=== PATIENT | female | born 1965 | race Two or more races ===

== ENCOUNTER 2017-09-23 08:11 | Inpatient (IN) | payer OTHER ==
[2017-09-22 12:00] VITALS: BMI 50.8
[~2017-09-23 08:11] MED LIST: BUPIVACAINE HCL/PF (5 MG/ML) 30 ML VIAL IJ ONE
[2017-09-23] MEDS ORDERED: fentaNYL CITRATE 250 MCG/5 ML VIAL ONE (09:28)
[2017-09-23] MEDS ORDERED: MIDAZOLAM HCL 2 MG/2 ML SINGLE DOSE VIAL ONE (09:28)
--- NOTE | 2017-09-23 10:06 | HP ---
History & Physical Update - History History: No Change - Physical Physical: No Change - Assessment Assessment: No Change - Plan Plan: No Change (Laparoscopic vertical sleeve gastrectomy, possible open, possible wedge liver biopsy, EGD)
[2017-09-23] MEDS ORDERED: BUPIVACAINE HCL/PF 0.5% (5MG/ML) 10 ML VIAL ONE (10:09)
[2017-09-23] MEDS ORDERED: ceFAZolin SODIUM 1 GM VIAL ONE (11:00)
[2017-09-23] MEDS ORDERED: KETOROLAC TROMETHAMINE 30 MG/1 ML VIAL ONE (11:00)
[2017-09-23] MEDS ORDERED: LABETALOL HCL 5 MG/1 ML (100MG/20 ML VIAL) ONE ×2 (11:00→11:11)
[2017-09-23] MEDS ORDERED: DEXAMETHASONE SOD PHOSPHATE 4 MG/1 ML VIAL ONE (11:00)
[2017-09-23] MEDS ORDERED: ceFAZolin SODIUM 1 GM VIAL IVPB ONE (11:04)
[2017-09-23] MEDS ORDERED: DESFLURANE GAS 240 ML BOTTLE IH ONE (11:08)
[2017-09-23] MEDS ORDERED: LIDOCAINE HCL 2% JELLY (5 ML/TUBE) ONE (11:11)
[2017-09-23] MEDS ORDERED: GLYCOPYRROLATE 0.2 MG/1 ML VIAL ONE ×2 (12:07→12:18)
[2017-09-23] MEDS ORDERED: BUPIVACAINE HCL/PF (5 MG/ML) 30 ML VIAL IJ ONE (12:11)
--- NOTE | 2017-09-23 12:15 | OP ---
Operative Note - Note: Operative Date: 09/23/17 Pre-Operative Diagnosis: Morbid obesity Operation: Laparoscopic vertical sleeve gastrectomy, wedge liver biopsy, EGD Post-Operative Diagnosis: Same as Pre-op Surgeon: Chris Woodward Shingles Roofer Helper: Arcadio Lainez Anesthesia: General Specimens Removed: Greater curvature of stomach. Liver biopsy Estimated Blood Loss (mls): 30 Drains & Tubes with Location: 36 Fr Bougie Operative Report Dictated: Yes
--- NOTE | 2017-09-23 12:30 | SURG ---
Surgery Assistant Men'S Lacrosse Coach Note Assistant Men'S Lacrosse Coach: Arcadio Lainez PA-C Date of Service: 09/23/17 Diagnosis: Morbid Obesity Procedure: Laparoscopic vertical sleeve gastrectomy, wedge liver biopsy, EGD I was present for the entirety of the operative procedure. For further detail, please refer to operative report. Visit type - Case Type Case Type: Scheduled - New patient This patient is new to me today: Yes Date on this admission: 09/23/17
[2017-09-23] MEDS ORDERED: METOCLOPRAMIDE HCL INJECTION 10 MG/2 ML VIAL ONE (12:39)
[2017-09-23] MEDS ORDERED: FAMOTIDINE 20 MG/50 ML IVPB 20 MG/50 ML MG IVPB ONE (12:39)
[2017-09-23] MEDS ORDERED: ACETAMINOPHEN INJECTION 100 ML IVPB ONE (12:40)
[2017-09-23] MEDS: ACETAMINOPHEN 1000 MG/100 ML VIAL (NON FORMULARY) IVPB SCH ×3 (13:00→18:53)
[2017-09-23 14:42] LABS: HEMATOCRIT 39.1 % (32.4-45.2); HEMOGLOBIN 12.7 GM/dL (10.7-15.3); MCH 28.3 pg (25.7-33.7); MCHC 32.5 g/dl (32.0-36.0); MEAN CELL VOLUME 87.2 fl (80-96); MEAN PLT VOLUME 9.9 fl (7.5-11.1); PLATELET COUNT 336 K/MM3 (134-434); RBC 4.49 M/mm3 (3.60-5.2); RDW 14.8 % (11.6-15.6); WHITE BLOOD COUNT 18.4 K/mm3 (4.0-10.0)
--- NOTE | 2017-09-23 14:43 | SPEC ---
DATE OF OPERATION: 09/23/2017 PREOPERATIVE DIAGNOSES: 1. Morbid obesity. 2. Body mass index 50.8. 3. Hypertension. 4. Diabetes mellitus. POSTOPERATIVE DIAGNOSES: 1. Morbid obesity. 2. Body mass index 50.8. 3. Hypertension. 4. Diabetes mellitus. 5. Hepatomegaly. PROCEDURE PERFORMED: 1. Laparoscopic vertical sleeve gastrectomy. 2. Laparoscopic wedge liver biopsy. 3. Esophagogastroduodenoscopy. SURGEON: Chris Woodward M.D. RUBBER PRESS OPERATOR: MARY Pruett SPECIMENS: 1. Greater curvature of the stomach. 2. Wedge liver biopsy. ESTIMATED BLOOD LOSS: 30 mL. DRAINS: None. ANESTHESIA: GET. BOUGIE SIZE: 36 Armenian REASON FOR PROCEDURE: This 52-year-old female presented to the office for weight loss options. After describing the different options, she decided to proceed with a laparoscopic, possible open vertical sleeve gastrectomy, possible wedge liver biopsy and upper endoscopy. The risks and benefits of the procedure were explained. These included bleeding, infection, hernia, VA, DVT, PE, injury to surrounding structures including the liver, colon, bowel, spleen, esophagus, vessel injury, nerve injury, weight regain, gastric leak, staple line leak, sleeve leak, obstruction, vitamin deficiency, hair loss and as some of the possible complications. The patient understood and signed informed consent. DESCRIPTION OF PROCEDURE: The patient was placed supine on the operating room table. The patient underwent general endotracheal intubation. A Pham catheter was inserted. The arms were brought out at 90 degrees and secured. A footboard was placed and the legs were secured laterally with padding. The abdomen was prepped and draped in the usual sterile fashion. A timeout was performed. An incision was made in the left upper quadrant and a Veress needle inserted. Pneumoperitoneum was established. Subsequently, the Veress needle was removed and a 12-mm trocar was placed. The laparoscopic camera was then inserted and inspection of the abdominal cavity was performed. An incision was then made in the supraumbilical area and a 15-mm trocar was placed under direct visualization. A 5-mm trocar was then placed in the right upper quadrant and a 5-mm trocar was placed below the left subcostal margin. A stab wound was made in the subxiphoid area and a Lisandra clamp inserted and removed to dilate the tract. A Leon liver retractor was inserted. The post was secured at the bedside by the nursing staff. The patient was placed in steep reverse Trendelenburg position and the Leon liver retractor was used to secure the liver towards the anterior abdominal wall. The pylorus was identified and 6 cm proximal to it, the lesser sac was entered using the LigaSure device. All lateral attachments to the greater curvature of the stomach, including the short gastric vessels, were ligated using the LigaSure device toward the gastrosplenic and gastrophrenic ligaments. Once this was done in its entirety, it was confirmed that all tubes within the nasal or oropharyngeal cavity, including a temperature probe, was removed by Anesthesia. The bougie was then inserted by Anesthesia. Transection of the stomach was then begun staying adjacent to the bougie but away from the angularis. Transection of the stomach was performed near the portion of the stomach where the lesser sac was entered. Two laparoscopic Endo-DASIA black renita were used at this location. Laparoscopic Endo DASIA purple staple loads were then used for the remainder of the transection until the greater curvature of the stomach was fully transected. This was done staying close to the bougie. Care was taken to stay away from the angle of His cephalad. The staple line was then inspected. Hemostasis was identified. A leak test was then performed. It was clamped distally to the staple line. Irrigation solution was placed in the left upper quadrant and air was insufflated by Anesthesia into the sleeve. No leaks were identified. No obstruction was identified. This was done through the entirety of the staple line. At this point, the irrigation solution was suctioned and again, hemostasis was noted. A wedge liver biopsy was then performed. The left lobe of the liver was identified and a portion of the edge was grasped. Using electrocautery, a wedge of the liver was excised. This was removed and sent off the field as specimen. Hemostasis at the site of the wedge liver biopsy was attained using electrocautery. The 15-mm supraumbilical trocar was then removed and the greater curvature specimen removed from the site using a sponge stick wright. The specimen was inspected and a Veress needle inserted. The specimen insufflated adequately and no leak was identified. The staple line was noted to be intact. A Noah-Kylah device was then used to temporarily close the fascia with a 0 Vicryl suture at the site. The 15-mm trocar was then reinserted and the 12-mm trocar in the left upper quadrant was removed. The fascia at this site was then closed using the Noah-Kylah device with a 0 Vicryl suture. Again, hemostasis was noted. The Leon liver retractor was then removed under direct visualization. Pneumoperitoneum was desufflated and the fascial sutures were secured. Hemostasis was noted at all incision sites and Marcaine was injected at all incision sites. All incision sites were closed using 4-0 Biosyn. Sterile dressings were applied. Patient was placed in the left lateral decubitus position. A bite block was placed. Timeout was performed. The endoscope was placed into the patient's mouth and inserted into the esophagus, GE junction, gastric sleeve pouch up to the level of the pylorus. The sleeve was noted to be within normal limits, with persistent adequate restriction and no gross anatomical abnormalities. The stomach was suctioned and the endoscope removed. The patient tolerated the procedure well and was transferred to the recovery room in stable condition with the Pham catheter intact. The patient was transferred to telemetry for further monitoring. Adele [id number]
[2017-09-23 15:19] LABS: ALBUMIN 3.3 g/dl (3.4-5.0); ALK PHOS 70 U/L (45-117); ANION GAP 8 (8-16); BILIRUBIN,TOTAL 0.2 mg/dL (0.2-1.0); BLOOD UREA NITROGEN 9 mg/dL (7-18); CALCIUM 8.4 mg/dL (8.5-10.1); CHLORIDE 107 mmol/L (98-107); CO2 25 mmol/L (21-32); CREATININE 0.9 mg/dL (0.55-1.02); GLUCOSE,RANDOM 148 mg/dL (74-106); POTASSIUM 4.8 mmol/L (3.5-5.1); SGOT/AST 25 U/L (15-37); SGPT/ALT 34 U/L (12-78); SODIUM 140 mmol/L (136-145); TOT PROT 6.7 g/dl (6.4-8.2)
[2017-09-23] MEDS: INSULIN SLIDING SCALE (NOVOLOG) 1 VIAL SQ SCH ×2 (15:52→16:51)
[2017-09-23] MEDS: ONDANSETRON 4 MG/2 ML VIAL IVPUSH SCH ×3 (16:00→21:41)
[2017-09-23] MEDS: SODIUM CHLORIDE 1,000 ML IV SCH (16:00)
[2017-09-23] MEDS: morphine SULFATE 4 MG/ML VIAL IVPUSH PRN (16:50)
[2017-09-23] MEDS: METOCLOPRAMIDE HCL INJECTION 10 MG/2 ML VIAL IVPUSH SCH (21:39)
[2017-09-23] MEDS: FAMOTIDINE 20 MG/50 ML IVPB 20 MG/50 ML MG IVPB SCH (21:42)
[2017-09-23] MEDS: ENOXAPARIN NA (PORCINE) 40 MG/0.4 ML DISP.SYRIN SQ SCH (21:43)
[2017-09-24] MEDS: ACETAMINOPHEN 1000 MG/100 ML VIAL (NON FORMULARY) IVPB SCH ×2 (00:38→08:42)
[2017-09-24] MEDS: ONDANSETRON 4 MG/2 ML VIAL IVPUSH SCH ×5 (01:11→21:37)
[2017-09-24] MEDS: METOCLOPRAMIDE HCL INJECTION 10 MG/2 ML VIAL IVPUSH SCH ×4 (03:42→21:29)
[2017-09-24] MEDS: INSULIN SLIDING SCALE (NOVOLOG) 1 VIAL SQ SCH ×3 (06:28→16:18)
[2017-09-24 06:40] LABS: HEMOGLOBIN 9.4 GM/dL (10.7-15.3); MCH 29.5 pg (25.7-33.7); MCHC 33.6 g/dl (32.0-36.0); MEAN CELL VOLUME 87.8 fl (80-96); MEAN PLT VOLUME 9.5 fl (7.5-11.1); PLATELET COUNT 283 K/MM3 (134-434); RBC 3.19 M/mm3 (3.60-5.2); RDW 14.9 % (11.6-15.6); WHITE BLOOD COUNT 16.9 K/mm3 (4.0-10.0)
[2017-09-24 07:05] LABS: ALBUMIN 2.9 g/dl (3.4-5.0); ANION GAP 8 (8-16); BLOOD UREA NITROGEN 12 mg/dL (7-18); CALCIUM 7.9 mg/dL (8.5-10.1); CHLORIDE 106 mmol/L (98-107); CO2 25 mmol/L (21-32); GLUCOSE,RANDOM 178 mg/dL (74-106); POTASSIUM 4.3 mmol/L (3.5-5.1); SGOT/AST 28 U/L (15-37); SGPT/ALT 35 U/L (12-78); SODIUM 139 mmol/L (136-145)
[2017-09-24 07:07] LABS: ALK PHOS 54 U/L (45-117); BILIRUBIN,TOTAL 0.3 mg/dL (0.2-1.0)
[2017-09-24] MEDS: morphine SULFATE 4 MG/ML VIAL IVPUSH PRN ×2 (10:40→22:31)
[2017-09-24] MEDS: FAMOTIDINE 20 MG/50 ML IVPB 20 MG/50 ML MG IVPB SCH ×2 (10:41→21:37)
[2017-09-24] MEDS ORDERED: LIDOCAINE 1%/EPI 1:100000 (50 ML MULTI DOSE VIAL) INF ONE (11:03)
--- NOTE | 2017-09-24 11:25 | PN ---
Progress Note (short form) - Note Progress Note: POD#1 Pt seen and examined this am. No CP, slight SOB. No dizziness or nausea. She is back from her UGI series. She had some bleeding to a port site overnight getting up to use the restroom. Daughter at bedside today to help answer questions. Vital Signs Period Temp Pulse Resp BP Sys/Frost Pulse Ox Last 24 Hr 97.7 F-98.6 F 65-100 15-20 145-191/70-105 94-100 GEN: Appears uncomfortabe CV:RR mild tachycardia Lungs: CTA b/l posteriorly ABD: bleeding from umbilical incision with large ecchymosis, approx size of a 4x4 gauze. LE: Clarence in place, no calf tenderess or swelling noted b/l CBC, BMP 09/24/17 05:30 09/24/ 05:30 Laboratory Tests 09/23/17 12:30 WBC 18.4 H Hgb 12.7 Hct 39.1 Plt Count 336 Procedure: area cleaned with betadine and 10 ml lidocaine with Epinephrine injected into the skin incision of the umbilical/right mid quadrant incision. A horizontal mattress suture was placed into this incision with a 4.0 nylon. A pressure dressing and abd binder was applied. A/p: 52 yo female s/p lap verttical sleeve gastrectomy, POD#1 Bleeding from mid abd incision, attempted to stop bleeding with lidocaine(epi )/suture/pressure dressing D/w Dr. Woodward and he is aware of the bleeding and procedures done to attempt to stop the bleeding. The area of ecchymosis was marked on the skin to monitor for expansion. She will remain npo, repeat cbc to help determine if the patient will need to return to the OR to control the bleeding. Holding lovenox for now Care discussed with the nursing staff today and will continue to monitor closely
--- NOTE | 2017-09-24 11:26 | PN ---
Progress Note (short form) - Note Progress Note: Anesthesiology Post-op 52 y.o. woman POD#1 s/p gastric sleeve resection under GA. Pt. states she is very tired. She does not c/o pain or n/v at this time. Per RN there were no ON issues. VSS. 52 y.o. woman s/p gastric sleeve with stable post-operative course. Continue post-operative management as per primary team.
[2017-09-24] MEDS: ENOXAPARIN NA (PORCINE) 40 MG/0.4 ML DISP.SYRIN SQ SCH (12:38)
[2017-09-24 12:44] LABS: BASO % 0.2 % (0-2.0); EOS % 0.1 % (0-4.5); HEMATOCRIT 25.5 % (32.4-45.2); HEMOGLOBIN 8.5 GM/dL (10.7-15.3); MCH 28.9 pg (25.7-33.7); MCHC 33.2 g/dl (32.0-36.0); MEAN CELL VOLUME 87.1 fl (80-96); MEAN PLT VOLUME 9.1 fl (7.5-11.1); MONO % 6.1 % (3.8-10.2); NEUT % 81.6 % (42.8-82.8); PLATELET COUNT 267 K/MM3 (134-434); RBC 2.93 M/mm3 (3.60-5.2); RDW 15.2 % (11.6-15.6); WHITE BLOOD COUNT 15.9 K/mm3 (4.0-10.0)
--- NOTE | 2017-09-24 16:10 | PN ---
Progress Note (short form) - Note Progress Note: POD 1 Pain controlled No nausea Noted to have oozing from supraumbilical incision site Pressure applied Lidocaine with epinephrine injected Suture placed for hemostasis Continues to ooze H/H dropping Abd soft, + ecchymosis, hematoma To OR for exploration of wound and evacuation of hematoma Patient and family understand and agree Risks and benefits explained
[2017-09-24] MEDS: SODIUM CHLORIDE 1,000 ML IV SCH (16:17)
[2017-09-24 16:44] LABS: HEMATOCRIT 25.5 % (32.4-45.2); HEMOGLOBIN 8.2 GM/dL (10.7-15.3); MCH 28.1 pg (25.7-33.7); MCHC 32.2 g/dl (32.0-36.0); MEAN CELL VOLUME 87.5 fl (80-96); MEAN PLT VOLUME 9.9 fl (7.5-11.1); PLATELET COUNT 291 K/MM3 (134-434); RBC 2.91 M/mm3 (3.60-5.2); RDW 14.7 % (11.6-15.6); WHITE BLOOD COUNT 13.7 K/mm3 (4.0-10.0)
[2017-09-24] MEDS ORDERED: MIDAZOLAM HCL 2 MG/2 ML SINGLE DOSE VIAL ONE (16:54)
[2017-09-24] MEDS ORDERED: SUCCINYLCHOLINE CHLORIDE 200 MG/10 ML VIAL ONE (17:00)
[2017-09-24] MEDS ORDERED: PROPOFOL 20 ML ONE (17:00)
[2017-09-24] MEDS ORDERED: ceFAZolin SODIUM 1 GM VIAL ONE (17:01)
[2017-09-24] MEDS ORDERED: LIDOCAINE 1%/EPI 1:100000 (20 ML MULTI DOSE VIAL) ONE (17:03)
[2017-09-24] MEDS ORDERED: ceFAZolin SODIUM 1 GM VIAL IVPB ONE (17:04)
[2017-09-24] MEDS ORDERED: LIDOCAINE 1%/EPI 1:100000 (20 ML MULTI DOSE VIAL) IJ ONE (17:20)
[2017-09-24] MEDS ORDERED: oxyCODONE HCL 5 MG TABLET PO PRN (17:28)
[2017-09-24] MEDS ORDERED: SODIUM CHLORIDE 1,000 ML IV SCH (17:30)
--- NOTE | 2017-09-24 17:35 | OP ---
Operative Note - Note: Operative Date: 09/24/17 Pre-Operative Diagnosis: port site bleeding/hematoma Operation: exploration of abdominal wound/evacaution of hematoma Surgeon: Chris Woodward Digester Hand: Cecilia Cortez Anesthesiologist/CORPORATE PLANNER: Gayathri Brennan Anesthesia: Local, MAC Estimated Blood Loss (mls): 10 Fluid Volume Replaced (mls): 400 Operative Report Dictated: Yes
--- NOTE | 2017-09-24 18:20 | PATH ---
Surgical Pathology Report Patient Name: MONAE JACOBS Med. Rec. #: [id number] /Age/Gender: 1965 (Age: 52) / F Account: [id number] Location: 4 W TELEMETRY U Taken: 09/23/2017 Received: 09/23/2017 Reported: 09/24/2017 Physicians: Chris Woodward M.D. Specimen(s) Received A: LIVER BIOPSY B: GREATER CURVATURE STOMACH Clinical History Morbid obesity Final Diagnosis A. LIVER, BIOPSY: LIVER PARENCHYMA WITH PATCHY MODERATE STEATOSIS (~35%). MILD FOCAL CHOLESTASIS. NO INCREASE IN IRON AND FIBROSIS ON PERFORMED SPECIAL STAINS (IRON AND TRICHROME). B. STOMACH, GREATER CURVATURE, LAPAROSCOPIC VERTICAL SLEEVE GASTRECTOMY: PORTION OF STOMACH WITH MODERATE CHRONIC GASTRITIS. IMMUNOHISTOCHEMICAL STAIN FOR H. PYLORI IS POSITIVE (FEW). Electronically Signed Natalie Santiago M.D. Gross Description A. Received in formalin labeled "liver biopsy," is a 1.5 x 1.1 x 0.5 cm gardiner portion of soft tissue. The specimen is bisected and entirely submitted in one cassette. B. Received in formalin, labeled "greater curvature of stomach," is a 96 gram, 16.5 x 3.4 x 3.0 cm. portion of stomach with a stapled margin of resection. The serosa is gardiner-dubon with minimal attached fat. The mucosa is gardiner-pink with normal folds. No mucosal masses are identified. Position Description Manager sections are submitted in one cassette. /09/23/2017 saudi09/23/2017
[2017-09-25] MEDS: ONDANSETRON 4 MG/2 ML VIAL IVPUSH SCH ×4 (03:23→15:05)
[2017-09-25] MEDS: morphine SULFATE 4 MG/ML VIAL IVPUSH PRN (03:30)
[2017-09-25] MEDS: METOCLOPRAMIDE HCL INJECTION 10 MG/2 ML VIAL IVPUSH SCH ×3 (03:45→15:04)
[2017-09-25] MEDS: INSULIN SLIDING SCALE (NOVOLOG) 1 VIAL SQ SCH ×3 (06:18→18:33)
--- NOTE | 2017-09-25 06:30 | OP ---
DATE OF OPERATION: 09/24/2017 SURGEON: Jesus Woodward MD TUBE MACHINE OPERATOR: MARY Powell PREOPERATIVE DIAGNOSIS: Abdominal hematoma. POSTOPERATIVE DIAGNOSIS: Abdominal hematoma. PROCEDURE: Exploration of abdominal wall wound/incision and evacuation of hematoma. SPECIMEN: None. ESTIMATED BLOOD LOSS: 5 mL. DRAINS: None. ANESTHESIA: MAC/local. REASON FOR PROCEDURE: This 52-year-old female underwent a vertical sleeve gastrectomy. She was noted to have an abdominal hematoma from her supraumbilical incision on the following day. Her hemoglobin levels were trending downwards, and despite suturing at the bedside, local injection with epinephrine, and pressure, the wound continued to ooze. Because of this, she was consented for exploration of this incision and evacuation of hematoma. The risks and benefits of the procedure were explained. These included bleeding, infection, hernia, IN, DVT, PE, and injuries to surrounding structures. She understood and signed informed consent. DESCRIPTION OF PROCEDURE: Patient was brought to the operating room, placed supine on the operating table. The area was prepped with Betadine and draped in a sterile fashion. Time-out was performed. The prior suture was cut with the Metzenbaum scissors and removed. The wound was opened with a 15-blade scalpel. Exploration of the wound was performed, and no discrete vessel was identified. There was some minor old blood that seemed to have already stopped. Hemostasis was obtained using electrocautery with the Bovie. No further bleeding was noted. The wound was noted to be dry. Copious irrigation was performed, and the wound packed with lap pads. Again, the wound was noted to be dry without any further evidence of bleeding. Surgicel dressing was placed within the abdominal wound, as well. Then, 3-0 Vicryl suture was used to close the deep subcutaneous tissue, and 2-0 nylon suture was used to close the skin in a horizontal mattress fashion. Lidocaine with epinephrine was injected both in the deep subcutaneous tissue as well as circumferentially. The patient tolerated the procedure well. The pressure dressing was applied. She was transferred to the recovery room in stable condition. JESUS WOODWARD M.D. [id number]
[2017-09-25 08:14] LABS: BASO % 0.4 % (0-2.0); EOS % 0.5 % (0-4.5); HEMATOCRIT 22.9 % (32.4-45.2); HEMOGLOBIN 7.7 GM/dL (10.7-15.3); LYMPH % 16.9 % (8-40); MCH 29.3 pg (25.7-33.7); MCHC 33.5 g/dl (32.0-36.0); MEAN CELL VOLUME 87.5 fl (80-96); MEAN PLT VOLUME 9.8 fl (7.5-11.1); MONO % 7.5 % (3.8-10.2); NEUT % 74.7 % (42.8-82.8); PLATELET COUNT 248 K/MM3 (134-434); RBC 2.62 M/mm3 (3.60-5.2); RDW 15.2 % (11.6-15.6); WHITE BLOOD COUNT 11.8 K/mm3 (4.0-10.0)
[2017-09-25 08:32] LABS: ANION GAP 7 (8-16); BLOOD UREA NITROGEN 8 mg/dL (7-18); CALCIUM 7.8 mg/dL (8.5-10.1); CHLORIDE 110 mmol/L (98-107); CO2 25 mmol/L (21-32); CREATININE 0.8 mg/dL (0.55-1.02); GLUCOSE,RANDOM 129 mg/dL (74-106); POTASSIUM 4.2 mmol/L (3.5-5.1); SODIUM 142 mmol/L (136-145)
--- NOTE | 2017-09-25 08:45 | PN ---
Progress Note, Physician Chief Complaint: s/p washout and repair of wound dehisence post op day one History of Present Illness: done under MAC anesthesia - Current Medication List Current Medications: Active Medications Enoxaparin Sodium (Lovenox -) 40 mg SQ BID [facility] Sodium Chloride (Normal Saline -) 1,000 mls @ 75 mls/hr IV ASDIR [facility] Last Admin: 09/24/17 20:15 Dose: 0 mls Famotidine/Sodium Chloride (Pepcid 20 Mg Premixed Ivpb -) 20 mg in 50 mls @ 100 mls/hr IVPB BID [facility] Last Admin: 09/24/17 21:37 Dose: 100 mls/hr Insulin Aspart (Novolog Vial Sliding Scale -) 1 vial SQ TIDAC [facility]; Protocol Last Admin: 09/25/17 06:18 Dose: Not Given Metoclopramide HCl (Reglan Injection -) 10 mg IVPUSH Q6H-IV [facility] Last Admin: 09/25/17 03:45 Dose: 10 mg Morphine Sulfate (Morphine Sulfate) 4 mg IVPUSH Q4H PRN PRN Reason: PAIN LEVEL 6-10 Last Admin: 09/25/17 03:30 Dose: 4 mg Ondansetron HCl (Zofran Injection) 4 mg IVPUSH Q4H-IV [facility] Last Admin: 09/25/17 06:56 Dose: 4 mg Oxycodone HCl (Roxicodone -) 5 mg PO Q4H PRN PRN Reason: PAIN LEVEL 1-5 - Objective Vital Signs: Vital Signs Temperature 98.7 F 09/25/17 05:00 Pulse Rate 91 H 09/25/17 05:00 Respiratory Rate 20 09/25/17 05:00 Blood Pressure 114/61 09/25/17 05:00 O2 Sat by Pulse Oximetry (%) 98 09/24/17 21:00 Constitutional: Yes: Well Nourished Cardiovascular: Yes: WNL Respiratory: Yes: WNL Gastrointestinal: Yes: WNL Labs: CBC, BMP 09/25/17 06:15 09/25/17 06:15 Assessment/Plan Patient with no complaints about anesthesia, no nausea or vomiting, pain controlled. Dept of anesthesia will sign off care at this time.
[2017-09-25] MEDS ORDERED: ENOXAPARIN NA (PORCINE) 40 MG/0.4 ML DISP.SYRIN SQ SCH (10:00)
--- NOTE | 2017-09-25 10:27 | PN ---
Progress Note (short form) - Note Progress Note: POD 2 vertical sleeve gastrectomy, POD 1 exploration of abdominal abdominal wound No pain Tolerating clears No nausea Vital Signs Period Temp Pulse Resp BP Sys/Frost Pulse Ox Last 24 Hr 97.6 F-98.7 F 90-98 15-20 114-136/56-86 98-100 Abd soft, ecchymosis unchanged- not increasing/stable CBC WBC 11.8 K/mm3 (4.0-10.0) H 09/25/17 06:15 RBC 2.62 M/mm3 (3.60-5.2) L 09/25/17 06:15 Hgb 7.7 GM/dL (10.7-15.3) L 09/25/17 06:15 Hct 22.9 % (32.4-45.2) L 09/25/17 06:15 MCV 87.5 fl (80-96) 09/25/17 06:15 MCH 29.3 pg (25.7-33.7) 09/25/17 06:15 MCHC 33.5 g/dl (32.0-36.0) 09/25/17 06:15 RDW 15.2 % (11.6-15.6) 09/25/17 06:15 Plt Count 248 K/MM3 (134-434) 09/25/17 06:15 MPV 9.8 fl (7.5-11.1) 09/25/17 06:15 Absolute Neuts (auto) 8.8 # 09/25/17 06:15 Neutrophils % 74.7 % (42.8-82.8) 09/25/17 06:15 Lymphocytes % 16.9 % (8-40) D 09/25/17 06:15 Monocytes % 7.5 % (3.8-10.2) 09/25/17 06:15 Eosinophils % 0.5 % (0-4.5) D 09/25/17 06:15 Basophils % 0.4 % (0-2.0) 09/25/17 06:15 Nucleated RBC % 0 % (0-0) 09/25/17 06:15 Serial CBCs Will observe
[2017-09-25] MEDS: FAMOTIDINE 20 MG/50 ML IVPB 20 MG/50 ML MG IVPB SCH (10:39)
[2017-09-25 12:32] LABS: BASO % 0.3 % (0-2.0); HEMATOCRIT 23.2 % (32.4-45.2); HEMOGLOBIN 7.7 GM/dL (10.7-15.3); LYMPH % 15.8 % (8-40); MCHC 33.2 g/dl (32.0-36.0); MEAN CELL VOLUME 87.6 fl (80-96); MEAN PLT VOLUME 9.4 fl (7.5-11.1); MONO % 8.3 % (3.8-10.2); NEUT % 74.6 % (42.8-82.8); PLATELET COUNT 262 K/MM3 (134-434); RBC 2.65 M/mm3 (3.60-5.2); RDW 15.3 % (11.6-15.6); WHITE BLOOD COUNT 11.5 K/mm3 (4.0-10.0)
[2017-09-25 17:44] LABS: BASO % 0.9 % (0-2.0); EOS % 1.4 % (0-4.5); HEMATOCRIT 23.7 % (32.4-45.2); HEMOGLOBIN 7.8 GM/dL (10.7-15.3); LYMPH % 18.1 % (8-40); MCH 28.5 pg (25.7-33.7); MCHC 32.8 g/dl (32.0-36.0); MEAN CELL VOLUME 86.9 fl (80-96); MEAN PLT VOLUME 9.2 fl (7.5-11.1); MONO % 7.6 % (3.8-10.2); PLATELET COUNT 277 K/MM3 (134-434); RBC 2.73 M/mm3 (3.60-5.2); RDW 14.7 % (11.6-15.6)
[2017-09-25 17:48] VITALS: BP 131/95; PULSE 104; TEMP 99.1
== END 2017-09-25 18:57 | disposition home or self-care (01) | DRG 403 ==
LOC: JSAMEDAYSX 08:11 → J4W 15:42
PROVIDERS: ADMIT Surgery; ATTEND Surgery
PROC: 0DB64Z3 Excision of Stomach, Percutaneous Endoscopic Approach, Vertical (ICD-10-PCS; principal; 2017-09-23 10:00)
PROC: 0FB24ZX Excision of Left Lobe Liver, Percutaneous Endoscopic Approach, Diagnostic (ICD-10-PCS; 2017-09-23 10:00)
PROC: 0DJ08ZZ Inspection of Upper Intestinal Tract, Via Natural or Artificial Opening Endoscopic (ICD-10-PCS; 2017-09-23 10:00)
PROC: 3E013GC Introduction of Other Therapeutic Substance into Subcutaneous Tissue, Percutaneous Approach (ICD-10-PCS; 2017-09-24)
PROC: 0W3F0ZZ Control Bleeding in Abdominal Wall, Open Approach (ICD-10-PCS; 2017-09-24)
PROC: 0WJJ0ZZ Inspection of Pelvic Cavity, Open Approach (ICD-10-PCS; 2017-09-24)
DX: E66.01 Morbid (severe) obesity due to excess calories (principal); E11.9 Type 2 diabetes mellitus without complications; I10 Essential (primary) hypertension; Z68.43 Body mass index [BMI] 50.0-59.9, adult; Z79.84 Long term (current) use of oral hypoglycemic drugs; Y83.8 Other surgical procedures as the cause of abnormal reaction of the patient, or of later complication, without mention of misadventure at the time of the procedure; L76.32 Postprocedural hematoma of skin and subcutaneous tissue following other procedure; T81.30XA Disruption of wound, unspecified, initial encounter; R16.0 Hepatomegaly, not elsewhere classified
CPT/HCPCS: 36415; 74241-TC-FY; 80048; 80053; 82962; 85025; 85027; 86850; 86900; 86901; 88307-TC; 94010; 94760; J0131; J7030

== ENCOUNTER → 2018-07-15 | Day surgery (SDC) | payer OTHER ==
--- NOTE | 2018-07-17 14:48 | PATH ---
Cytology Non-Gynecological Report Patient Name: MONAE JACOBS [facility]. Rec. #: [id number] /Age/Gender: 1965 (Age: 52) / F Account: [id number] Location: MAMMOGRAPHY Taken: 07/16/2018 Received: 07/16/2018 Reported: 07/17/2018 Physicians: Adele Gandhi D.O. Specimen(s) Received BREAST,ULTRA SOUND GUIDED FNA RIGHT Clinical History Breast cyst Final Diagnosis BREAST, RIGHT, 5:00, CYST, FINE NEEDLE ASPIRATION: SATISFACTORY FOR EVALUATION. NEGATIVE FOR MALIGNANT CELLS. BENIGN DUCTAL CELLS WITH APOCRINE METAPLASIA, AND MACROPHAGES PRESENT. Electronically Signed Chalino Ortega M.D. Gross Description Approximately 50 cc clear in color fluid received in 50% alcohol. One slide and one cell block prepared
== END | disposition home or self-care (01) ==
LOC: JMAMMO-SUR 11:32 → JPSTO 11:32
PROVIDERS: ATTEND Student in an Organized Health Care Education/Training Program
PROC: 0H9T3ZX Drainage of Right Breast, Percutaneous Approach, Diagnostic (ICD-10-PCS; principal; 2018-07-15)
DX: N60.01 Solitary cyst of right breast (principal)
CPT/HCPCS: 76942-TC; 77065-TC; 87899; 88173

== ENCOUNTER 2020-06-17 20:25 | Emergency (ER) | payer OTHER ==
[2020-06-17 20:34] VITALS: TEMP 98.7; BMI 35.5
[2020-06-17] MEDS ORDERED: SODIUM CHLORIDE 0.9% 500 ML INFUS.BAG IV ONE (22:03)
[2020-06-17 22:28] LABS: BASO % 0.3 % (0-2.0); EOS % 1.7 % (0-4.5); HEMATOCRIT 39.9 % (32.4-45.2); HEMOGLOBIN 13.1 GM/dL (10.7-15.3); LYMPH % 18.7 % (8-40); MCH 27.5 pg (25.7-33.7); MCHC 32.9 g/dl (32.0-36.0); MEAN CELL VOLUME 83.6 fl (80-96); MONO % 4.1 % (3.8-10.2); NEUT % 75.2 % (42.8-82.8); PLATELET COUNT 357 K/MM3 (134-434); RBC 4.77 M/mm3 (3.60-5.2); RDW 15.1 % (11.6-15.6); WHITE BLOOD COUNT 10.9 K/mm3 (4.0-10.0)
[2020-06-17 22:31] LABS: EPI CELLS 17 /uL (0-25.1); HYALINE CASTS 1 /uL (0-3.1); URINE APPEARANCE CLEAR; URINE BACTERIA 163 /uL (0-1359); URINE BILIRUBIN NEGATIVE (NEGATIVE); URINE COLOR YELLOW; URINE GLUCOSE (UA) NEGATIVE (NEGATIVE); URINE KETONE NEGATIVE (NEGATIVE); URINE LEUK ESTERASE NEGATIVE (NEGATIVE); URINE NITRITE NEGATIVE (NEGATIVE); URINE PROTEIN 1+ (NEGATIVE); URINE RBC 2 /uL (0-23.9); URINE UROBILINOGEN 0.2 mg/dL (0.2-1.0); URINE WBC 6 /uL (0-25.8)
[2020-06-17 22:50] LABS: ALBUMIN 3.7 g/dl (3.4-5.0); BLOOD UREA NITROGEN 15.4 mg/dL (7-18); CALCIUM 9.6 mg/dL (8.5-10.1)
[2020-06-17 22:55] LABS: BILIRUBIN,TOTAL 0.3 mg/dL (0.2-1); TOT PROT 7.5 g/dl (6.4-8.2)
[2020-06-18] MEDS ORDERED: AMOX TR/POT CLAV 875MG/125MG TABLETS (FP) PO ONE (00:10)
[2020-06-18] MEDS ORDERED: AMOX TR/POT CLAV 875MG/125MG TABLETS (FP) ONE (00:36)
[2020-06-18 01:20] VITALS: BP 151/73; PULSE 72
== END 2020-06-18 01:20 | disposition home or self-care (01) ==
LOC: JER 20:25
DX: K52.9 Noninfective gastroenteritis and colitis, unspecified (principal); K57.92 Diverticulitis of intestine, part unspecified, without perforation or abscess without bleeding
CPT/HCPCS: 36415; 71046-TC-FY; 74177-TC; 76830-TC; 80053; 81003; 83605; 83690; 85025; 87086; 93005; 93010; 99285-25; Q9967

== ENCOUNTER 2020-09-09 22:00 | Observation (INO) | payer OTHER ==
[2020-09-09] MEDS ORDERED: ACETAMINOPHEN 1000 MG/100 ML VIAL (NON FORMULARY) IVPB ONE (22:31)
[2020-09-09 22:36] VITALS: BMI 41.9
[2020-09-09] MEDS ORDERED: amLODIPine BESYLATE 5 MG TABLET (FP) PO ONE (22:39)
[2020-09-09] MEDS ORDERED: ACETAMINOPHEN INJECTION 100 ML IVPB ONE (22:48)
[2020-09-09 23:08] LABS: BASO % 0.6 % (0-2.0); EOS % 3.6 % (0-4.5); HEMATOCRIT 35.5 % (32.4-45.2); HEMOGLOBIN 12.1 GM/dL (10.7-15.3); LYMPH % 25.6 % (8-40); MCH 27.7 pg (25.7-33.7); MCHC 33.9 g/dl (32.0-36.0); MEAN CELL VOLUME 81.6 fl (80-96); MEAN PLT VOLUME 8.9 fl (7.5-11.1); MONO % 6.9 % (3.8-10.2); NEUT % 63.3 % (42.8-82.8); PLATELET COUNT 300 10^3/uL (134-434); RBC 4.35 M/mm3 (3.60-5.2); RDW 15.4 % (11.6-15.6); WHITE BLOOD COUNT 9.2 K/mm3 (4.0-10.0)
[2020-09-09 23:14] LABS: INR 0.94 (0.83-1.09); PROTHROMBIN TIME (PATIENT) 11.4 SEC (9.7-13.0)
[2020-09-09 23:17] LABS: ACTIVATED PTT 27.9 SECONDS (25.2-36.5)
[2020-09-09 23:33] LABS: CHLORIDE 113 mmol/L (98-107); SODIUM 144 mmol/L (136-145)
[2020-09-09 23:35] LABS: ANION GAP 6 MMOL/L (8-16); BLOOD UREA NITROGEN 17.7 mg/dL (7-18); CALCIUM 8.2 mg/dL (8.5-10.1); CO2 25 mmol/L (21-32); LIPASE 175 U/L (73-393)
[2020-09-09 23:36] LABS: ALBUMIN 3.1 g/dl (3.4-5.0); GLUCOSE,RANDOM 114 mg/dL (74-106)
[2020-09-09 23:38] LABS: CREATININE 1.1 mg/dL (0.55-1.3); SGPT/ALT 18 U/L (13-61)
[2020-09-09 23:39] LABS: SGOT/AST 15 U/L (15-37)
[2020-09-09 23:40] LABS: BILIRUBIN,TOTAL 0.1 mg/dL (0.2-1); TOT PROT 6.6 g/dl (6.4-8.2)
[2020-09-09 23:41] LABS: ALK PHOS 98 U/L (45-117)
[2020-09-10] MEDS ORDERED: MAG HYDROX/AL HYDROX/SIMETH 30 ML UNIT-DOSE CUP PO PRN (02:08)
[2020-09-10 05:15] LABS: URINE APPEARANCE CLEAR; URINE BILIRUBIN NEGATIVE (NEGATIVE); URINE COLOR YELLOW; URINE GLUCOSE (UA) NEGATIVE (NEGATIVE); URINE KETONE NEGATIVE (NEGATIVE); URINE LEUK ESTERASE NEGATIVE (NEGATIVE); URINE NITRITE NEGATIVE (NEGATIVE); URINE PROTEIN TRACE (NEGATIVE); URINE UROBILINOGEN 0.2 mg/dL (0.2-1.0)
[2020-09-10 06:05] LABS: BASO % 0.5 % (0-2.0); EOS % 4.4 % (0-4.5); HEMATOCRIT 38.2 % (32.4-45.2); HEMOGLOBIN 12.5 GM/dL (10.7-15.3); LYMPH % 32.7 % (8-40); MCH 27.3 pg (25.7-33.7); MCHC 32.7 g/dl (32.0-36.0); MEAN CELL VOLUME 83.4 fl (80-96); MEAN PLT VOLUME 9.5 fl (7.5-11.1); MONO % 5.3 % (3.8-10.2); NEUT % 57.1 % (42.8-82.8); PLATELET COUNT 311 10^3/uL (134-434); RBC 4.57 M/mm3 (3.60-5.2); RDW 15.3 % (11.6-15.6); WHITE BLOOD COUNT 7.9 K/mm3 (4.0-10.0)
[2020-09-10 06:27] LABS: CHLORIDE 110 mmol/L (98-107); SODIUM 142 mmol/L (136-145)
[2020-09-10 06:30] LABS: CALCIUM 8.5 mg/dL (8.5-10.1)
[2020-09-10 06:31] LABS: ALBUMIN 3.2 g/dl (3.4-5.0); ANION GAP 6 MMOL/L (8-16); BLOOD UREA NITROGEN 15.5 mg/dL (7-18); CO2 26 mmol/L (21-32); GLUCOSE,RANDOM 99 mg/dL (74-106); MAGNESIUM 2.1 mg/dL (1.8-2.4)
[2020-09-10 06:33] LABS: SGPT/ALT 19 U/L (13-61)
[2020-09-10 06:34] LABS: CHOLESTEROL 208 mg/dL (50-200); CREATININE 0.9 mg/dL (0.55-1.3); PHOSPHOROUS 3.9 mg/dL (2.5-4.9); SGOT/AST 12 U/L (15-37); TRIGLYCERIDES 113 mg/dL (0-150)
[2020-09-10 06:35] LABS: BILIRUBIN,TOTAL 0.3 mg/dL (0.2-1); LDL CHOLESTEROL (ONLY SJRH) 124 mg/dL (5-100); TOT PROT 6.7 g/dl (6.4-8.2)
[2020-09-10 06:36] LABS: ALK PHOS 80 U/L (45-117); HDL CHOLESTEROL 56 mg/dL (40-60)
[2020-09-10] MEDS: ENOXAPARIN NA (PORCINE) 40 MG/0.4 ML DISP.SYRIN SQ SCH ×2 (10:00→13:22)
[2020-09-10] MEDS: FAMOTIDINE 20 MG TABLET PO SCH (13:22)
[2020-09-10] MEDS: amLODIPine BESYLATE 5 MG TABLET (FP) PO SCH (13:22)
[2020-09-10] MEDS ORDERED: ALBUTEROL SO4 2.5/IPRATROPIUM 0.5 INH SOL 3 ML VIAL.NEB. NEB PRN (18:07)
[2020-09-10] MEDS: INSULIN SLIDING SCALE (NOVOLOG) 1 VIAL SQ SCH (21:21)
[2020-09-10] MEDS ORDERED: ATORVASTATIN CA 40 MG TABLET (FP) PO SCH (22:00)
[2020-09-11] MEDS: INSULIN SLIDING SCALE (NOVOLOG) 1 VIAL SQ SCH ×3 (06:11→16:30)
[2020-09-11 08:12] LABS: BASO % 0.7 % (0-2.0); EOS % 4.2 % (0-4.5); HEMATOCRIT 39.1 % (32.4-45.2); MCH 27.7 pg (25.7-33.7); MCHC 33.2 g/dl (32.0-36.0); MEAN CELL VOLUME 83.6 fl (80-96); MEAN PLT VOLUME 9.7 fl (7.5-11.1); MONO % 6.1 % (3.8-10.2); PLATELET COUNT 316 10^3/uL (134-434); RBC 4.67 M/mm3 (3.60-5.2); RDW 15.4 % (11.6-15.6); WHITE BLOOD COUNT 7.4 K/mm3 (4.0-10.0)
[2020-09-11 08:35] LABS: CALCIUM 8.7 mg/dL (8.5-10.1)
[2020-09-11 08:36] LABS: ALBUMIN 3.3 g/dl (3.4-5.0); BLOOD UREA NITROGEN 13.6 mg/dL (7-18); MAGNESIUM 2.1 mg/dL (1.8-2.4)
[2020-09-11 08:39] LABS: CREATININE 0.9 mg/dL (0.55-1.3)
[2020-09-11 08:40] LABS: BILIRUBIN,TOTAL 0.3 mg/dL (0.2-1); TOT PROT 6.7 g/dl (6.4-8.2)
[2020-09-11] MEDS: FAMOTIDINE 20 MG TABLET PO SCH (09:14)
[2020-09-11] MEDS: amLODIPine BESYLATE 5 MG TABLET (FP) PO SCH (09:14)
[2020-09-11] MEDS: ENOXAPARIN NA (PORCINE) 40 MG/0.4 ML DISP.SYRIN SQ SCH (09:14)
[2020-09-11] MEDS ORDERED: REGADENOSON 0.4 MG/5 ML PRE-FILLED SYRINGE IVPUSH ONE ×2 (11:45→13:12)
[2020-09-11 15:58] VITALS: BP 136/85; PULSE 115; TEMP 98.4
== END 2020-09-11 18:20 | disposition home or self-care (01) ==
LOC: JER 22:00 → OBSVTOIN 23:52 → JERBED 23:52 → INTOOBSV 23:52 → J4W 09-10 09:39
PROVIDERS: ADMIT Hospitalist; ATTEND Nurse Practitioner Family
PROC: 3E033NZ Introduction of Analgesics, Hypnotics, Sedatives into Peripheral Vein, Percutaneous Approach (ICD-10-PCS; principal; 2020-09-09)
PROC: 3E023GC Introduction of Other Therapeutic Substance into Muscle, Percutaneous Approach (ICD-10-PCS; 2020-09-09)
PROC: 3E033GC Introduction of Other Therapeutic Substance into Peripheral Vein, Percutaneous Approach (ICD-10-PCS; 2020-09-09)
DX: I10 Essential (primary) hypertension (principal); R73.03 Prediabetes; J45.909 Unspecified asthma, uncomplicated; E66.8 Other obesity; Z98.84 Bariatric surgery status; Z29.9 Encounter for prophylactic measures, unspecified
CPT/HCPCS: 36415; 71045-TC-FY; 78452-TC; 80053; 80061; 81003; 82550; 82962; 83036; 83690; 83721; 83735; 84100; 84484; 85025; 85610; 85730; 87086; 93005; 93010; 93017; 93306-TC; 96372; 96374; 96375; 99285-25; A9502; C9803; G0378; J0131; J2785; U0003; U0005

== ENCOUNTER 2020-10-12 04:47 | Day surgery (SDC) | payer OTHER ==
[2020-10-12 10:29] VITALS: BMI 96.7
[2020-10-12] MEDS ORDERED: ONDANSETRON 4 MG/2 ML VIAL ONE ×3 (12:17)
[2020-10-12 13:07] VITALS: TEMP 97.5
[2020-10-12 13:43] VITALS: BP 123/59; PULSE 66
== END 2020-10-12 13:49 | disposition home or self-care (01) ==
LOC: JASU-ENDO 04:47
PROVIDERS: ATTEND Internal Medicine Gastroenterology
PROC: 0DJD8ZZ Inspection of Lower Intestinal Tract, Via Natural or Artificial Opening Endoscopic (ICD-10-PCS; principal; 2020-10-12 10:45)
DX: Z12.11 Encounter for screening for malignant neoplasm of colon (principal); K57.30 Diverticulosis of large intestine without perforation or abscess without bleeding
CPT/HCPCS: 81025

== ENCOUNTER 2021-06-12 17:38 | Emergency (ER) | payer OTHER ==
[2021-06-12 17:50] VITALS: BP 130/81; PULSE 94; TEMP 97.9; BMI 44.4
[2021-06-12] MEDS ORDERED: SODIUM CHLORIDE 1,000 ML IV STA (18:58)
[2021-06-12 20:18] LABS: BASO % 0.1 % (0-2.0); EOS % 1.1 % (0-4.5); HEMATOCRIT 41.8 % (32.4-45.2); HEMOGLOBIN 13.8 GM/dL (10.7-15.3); LYMPH % 17.5 % (8-40); MCH 27.1 pg (25.7-33.7); MCHC 32.9 g/dl (32.0-36.0); MEAN CELL VOLUME 82.2 fl (80-96); MEAN PLT VOLUME 9.5 fl (7.5-11.1); MONO % 8.9 % (3.8-10.2); NEUT % 72.4 % (42.8-82.8); PLATELET COUNT 278 10^3/uL (134-434); RBC 5.09 M/mm3 (3.60-5.2); RDW 15.1 % (11.6-15.6); WHITE BLOOD COUNT 5.6 K/mm3 (4.0-10.0)
[2021-06-12 20:24] LABS: CALCIUM 8.2 mg/dL (8.5-10.1)
[2021-06-12 20:25] LABS: BLOOD UREA NITROGEN 15.4 mg/dL (7-18)
[2021-06-12 20:26] LABS: ALBUMIN 3.4 g/dl (3.4-5.0)
[2021-06-12 20:28] LABS: CREATININE 1.3 mg/dL (0.55-1.3)
[2021-06-12 20:30] LABS: BILIRUBIN,TOTAL 0.2 mg/dL (0.2-1); TOT PROT 7.5 g/dl (6.4-8.2)
[2021-06-12 20:44] LABS: EPI CELLS >36 /uL (0-25.1); HYALINE CASTS 1 /uL (0-3.1); PH,URINE 5.5 (5.0-8.0); URINE APPEARANCE CLOUDY; URINE BACTERIA 414 /uL (0-1359); URINE BILIRUBIN NEGATIVE (NEGATIVE); URINE COLOR YELLOW; URINE GLUCOSE (UA) NEGATIVE (NEGATIVE); URINE KETONE NEGATIVE (NEGATIVE); URINE LEUK ESTERASE NEGATIVE (NEGATIVE); URINE NITRITE NEGATIVE (NEGATIVE); URINE PROTEIN 1+ (NEGATIVE); URINE RBC 6 /uL (0-23.9); URINE UROBILINOGEN 0.2 mg/dL (0.2-1.0); URINE WBC 40 /uL (0-25.8)
[2021-06-14 14:08] LABS: SARS-CoV-2 NAA Not Detected (Not Detected)
== END 2021-06-12 23:11 | disposition home or self-care (01) ==
LOC: JER 17:38
PROC: 3E0337Z Introduction of Electrolytic and Water Balance Substance into Peripheral Vein, Percutaneous Approach (ICD-10-PCS; principal; 2021-06-12)
DX: K52.9 Noninfective gastroenteritis and colitis, unspecified (principal)
CPT/HCPCS: 36415; 74177-TC; 80053; 81003; 83690; 85025; 87086; 87804; 99285-25; C9803-CS; Q9967; U0003; U0005

== ENCOUNTER 2023-08-23 14:33 | Emergency (ER) | payer OTHER ==
[2023-08-23 14:41] VITALS: TEMP 98; BMI 29.0
[2023-08-23] MEDS ORDERED: ACETAMINOPHEN INJECTION 100 ML IVPB ONE (15:16)
[2023-08-23] MEDS ORDERED: LIDOCAINE 4% PATCH TP ONE (15:17)
[2023-08-23 15:21] LABS: BASO % 0.5 % (0-2.0); EOS % 2.4 % (0-4.5); HEMATOCRIT 33.7 % (32.4-45.2); LYMPH % 29.3 % (8-40); MCH 27.6 pg (25.7-33.7); MCHC 32.7 g/dl (32.0-36.0); MEAN CELL VOLUME 84.6 fl (80-96); MONO % 5.2 % (3.8-10.2); NEUT % 62.6 % (42.8-82.8); PLATELET COUNT 316 10^3/uL (134-434); RBC 3.99 M/mm3 (3.60-5.2); RDW 14.7 % (11.6-15.6); WHITE BLOOD COUNT 7.3 K/mm3 (4.0-10.0)
[2023-08-23] MEDS: LIDOCAINE 4% PATCH TP ONE (15:26)
[2023-08-23] MEDS: ACETAMINOPHEN 1000 MG/100 ML BAG IVPB ONE (15:26)
[2023-08-23 15:29] LABS: INR 0.95 (0.83-1.09); PROTHROMBIN TIME (PATIENT) 10.9 SEC (9.7-13.0)
[2023-08-23 15:32] LABS: ACTIVATED PTT 29.7 SECONDS (25.2-36.5)
[2023-08-23 15:51] LABS: ALBUMIN 3.5 g/dl (3.4-5.0); BLOOD UREA NITROGEN 16.5 mg/dL (7-18); CALCIUM 8.7 mg/dL (8.5-10.1); MAGNESIUM 2.3 mg/dL (1.8-2.4)
[2023-08-23 15:54] LABS: CREATININE 1.4 mg/dL (0.55-1.3)
[2023-08-23 15:56] LABS: BILIRUBIN,TOTAL 0.3 mg/dL (0.2-1); TOT PROT 6.8 g/dl (6.4-8.2)
[2023-08-23] MEDS ORDERED: MORPHINE SULFATE 2 MG/ML SYRINGE ONE (16:22)
[2023-08-23] MEDS: morphine CARPU-JECT 4 MG/1 ML DISP.SYRIN IVPUSH ONE (16:30)
[2023-08-23 20:01] VITALS: RESP 20
[2023-08-23 20:02] VITALS: BP 142/104; PULSE 67
[2023-08-23] MEDS ORDERED: LIDOCAINE PATCH REMOVAL MC SCH (22:00)
== END 2023-08-23 20:03 | disposition home or self-care (01) ==
LOC: JER 14:33
PROC: 3E033NZ Introduction of Analgesics, Hypnotics, Sedatives into Peripheral Vein, Percutaneous Approach (ICD-10-PCS; principal; 2023-08-23)
PROC: 3E033NZ Introduction of Analgesics, Hypnotics, Sedatives into Peripheral Vein, Percutaneous Approach (ICD-10-PCS; 2023-08-23)
DX: R07.9 Chest pain, unspecified (principal); M79.10 Myalgia, unspecified site; M54.2 Cervicalgia; X50.0XXA Overexertion from strenuous movement or load, initial encounter
CPT/HCPCS: 36415; 71045-TC-FY; 80053; 83735; 84484; 85025; 85610; 85730; 93005; 93010; 99285-25; J0131

== ENCOUNTER 2023-09-24 11:14 | Emergency (ER) | payer OTHER ==
[2023-09-24 11:25] VITALS: BP 114/73; PULSE 59; RESP 18; TEMP 97.6; BMI 35.6
[2023-09-24 14:03] LABS: PH,URINE 5.5 (5.0-8.0); URINE APPEARANCE CLEAR; URINE BILIRUBIN NEGATIVE (NEGATIVE); URINE COLOR YELLOW; URINE GLUCOSE (UA) NEGATIVE (NEGATIVE); URINE KETONE NEGATIVE (NEGATIVE); URINE LEUK ESTERASE NEGATIVE (NEGATIVE); URINE NITRITE NEGATIVE (NEGATIVE); URINE PROTEIN NEGATIVE (NEGATIVE); URINE UROBILINOGEN 0.2 mg/dL (0.2-1.0)
[2023-09-24 14:09] LABS: BASO % 0.5 % (0-2.0); EOS % 2.2 % (0-4.5); HEMATOCRIT 35.5 % (32.4-45.2); HEMOGLOBIN 11.9 GM/dL (10.7-15.3); LYMPH % 31.3 % (8-40); MCH 28.4 pg (25.7-33.7); MCHC 33.5 g/dl (32.0-36.0); MEAN CELL VOLUME 84.8 fl (80-96); MEAN PLT VOLUME 9.2 fl (7.5-11.1); MONO % 6.2 % (3.8-10.2); NEUT % 59.8 % (42.8-82.8); PLATELET COUNT 334 10^3/uL (134-434); RBC 4.19 M/mm3 (3.60-5.2); RDW 14.7 % (11.6-15.6); WHITE BLOOD COUNT 7.1 K/mm3 (4.0-10.0)
[2023-09-24 14:11] LABS: INR 0.91 (0.83-1.09); PROTHROMBIN TIME (PATIENT) 10.5 SEC (9.7-13.0)
[2023-09-24 14:13] LABS: ACTIVATED PTT 30.9 SECONDS (25.2-36.5)
[2023-09-24] MEDS ORDERED: METHOCARBAMOL 500 MG TABLET ONE (14:28)
[2023-09-24] MEDS ORDERED: LIDOCAINE 4% PATCH TP ONE (14:29)
[2023-09-24] MEDS ORDERED: ONDANSETRON 4 MG/2 ML VIAL ONE (14:29)
[2023-09-24] MEDS ORDERED: KETOROLAC TROMETHAMINE 15 MG/ML VIAL ONE (14:29)
[2023-09-24 14:34] LABS: POTASSIUM 4.1 mmol/L (3.5-5.1)
[2023-09-24 14:36] LABS: ALBUMIN 3.6 g/dl (3.4-5.0); BLOOD UREA NITROGEN 19.4 mg/dL (7-18)
[2023-09-24 14:39] LABS: CREATININE 1.3 mg/dL (0.55-1.3)
[2023-09-24] MEDS: LIDOCAINE 4% PATCH TP ONE (14:39)
[2023-09-24] MEDS: KETOROLAC TROMETHAMINE 15 MG/ML VIAL IVPUSH ONE (14:40)
[2023-09-24] MEDS: METHOCARBAMOL 500 MG TABLET PO ONE (14:40)
[2023-09-24] MEDS: ONDANSETRON 4 MG/2 ML VIAL IVPUSH ONE (14:40)
[2023-09-24 14:41] LABS: BILIRUBIN,TOTAL 0.4 mg/dL (0.2-1); TOT PROT 6.8 g/dl (6.4-8.2)
[2023-09-24] MEDS ORDERED: LIDOCAINE PATCH REMOVAL MC ONE (22:00)
== END 2023-09-24 16:52 | disposition home or self-care (01) ==
LOC: JER 11:14
PROC: 3E0333Z Introduction of Anti-inflammatory into Peripheral Vein, Percutaneous Approach (ICD-10-PCS; principal; 2023-09-24)
PROC: 3E033GC Introduction of Other Therapeutic Substance into Peripheral Vein, Percutaneous Approach (ICD-10-PCS; 2023-09-24)
DX: M54.16 Radiculopathy, lumbar region (principal); M54.50 Low back pain, unspecified; G89.29 Other chronic pain
CPT/HCPCS: 36415; 72131-TC; 80053; 81003; 85025; 85610; 85730; 86850; 86900; 86901; 87086; 99284-25